=== PATIENT | male | born 1990 | race Caucasian/White ===

== ENCOUNTER 2019-03-23 21:10 | Emergency (ER) | payer OTHER ==
[~2019-03-23] VITALS: Ht 175.3 cm; Wt 95.7 kg
[~2019-03-23 21:10] MED LIST: CLIN300 PO; ONDA4ODT MM; OXYACE5T PO; PENVK500 PO; RXONDA4ODT MM
[2019-03-23 22:06] LABS: Source, Urine Clean Catch
[2019-03-23 22:09] LABS: Bilirubin, Urine Neg (Neg); Blood, Urine Neg (Neg); Glucose Qualitative, Urine Neg (Neg); Ketones, Urine 2+ (Neg); Leukocyte Esterase, Urine 1+ (Neg); Nitrite, Urine Neg (Neg); Protein, Urine 2+ (Neg); Specific Gravity, Urine 1.015 (1.003-1.022); Urobilinogen, Urine NORM (Normal); pH, Urine 6.5 (5.0-8.0)
[2019-03-23 22:15] LABS: Appearance, Urine Hazy (Clear); Color, Urine Yellow (P-Yellow)
[2019-03-23 22:16] LABS: Amorphous Light (0-Heavy); Bacteria Rare /hpf; Mucus Mod (0-Heavy); Red Blood Cells, Urine Not Seen /hpf (0-2); Squamous Epithelial Cells Rare /hpf (Few)
[2019-03-24] MEDS ORDERED: Roxicodone5 MG PO (05:23)
== END 2019-03-24 05:58 | disposition home or self-care (01) ==
LOC: ER 21:10
PROVIDERS: Physician Assistant
DX: S32.019A Unspecified fracture of first lumbar vertebra, initial encounter for closed fracture (principal); W19.XXXA Unspecified fall, initial encounter; Z88.0 Allergy status to penicillin
CPT/HCPCS: 71046; 74019; 74177; 76705; 80053; 81001; 83690; 85025; 87086; 96361-59; 96374-59; 96375-59; 96376-59; 99284-25; A9270; J2060; J2405; J7030; Q9967

== ENCOUNTER 2019-09-15 15:59 | Emergency (ER) | payer OTHER ==
[~2019-09-15] VITALS: Ht 175.3 cm; Wt 90.7 kg
[~2019-09-15 15:59] MED LIST changes: +Roxicodone5 MG PO
[2019-09-15] MEDS ORDERED: Ativan1 MG (17:55)
== END 2019-09-15 17:57 | disposition home or self-care (01) ==
LOC: ER 15:59
DX: S01.01XA Laceration without foreign body of scalp, initial encounter (principal); G40.909 Epilepsy, unspecified, not intractable, without status epilepticus; W22.8XXA Striking against or struck by other objects, initial encounter
CPT/HCPCS: 12002; 72100; 99284-25